=== PATIENT | male | born 1980 | race Caucasian/White ===

== ENCOUNTER 2022-12-28 17:04 | Emergency (ER) | payer BC ==
[2022-12-28 17:23] LABS: Absolute Lymphocytes (CBC) 2.9 K/uL (0.7-4.9); Hematocrit 41.2 % (39.6-49.0); Lymphocytes % 34.3 % (15.3-44.8); MCV 89.4 fL (80-100); MPV 7.9 fL (7.6-11.3); RBC Red Blood Cell Count 4.61 M/uL (4.33-5.43)
[2022-12-28 17:43] LABS: Albumin 4.4 g/dL (3.4-5.0); Bilirubin Direct 0.1 mg/dL (0-0.2); Bilirubin Total 0.4 mg/dL (0.2-1.0); Magnesium 2.3 mg/dL (1.6-2.4); Potassium 3.8 mEq/L (3.5-5.1); Protein, Total 7.8 g/dL (6.4-8.2); Troponin High Sensitivity 6.7 pg/mL (<58.9)
--- NOTE | 2022-12-28 17:58 | RAD REPORT ---
EXAM DESCRIPTION: Crescencio Single View12/28/2022 5:51 pm CLINICAL HISTORY: Chest pain COMPARISON: none FINDINGS: The lungs appear clear of acute infiltrate. The heart is normal size IMPRESSION: No acute abnormalities displayed
[2022-12-28] MEDS ORDERED: SIMETHICONE 80 MG TAB ONE (18:33)
[2022-12-28] MEDS ORDERED: NA CHLORIDE 0.9% 1,000 ML ONE (18:33)
[2022-12-28] MEDS ORDERED: PANTOPRAZOLE 40MG TABLET PO ONE (18:33)
[2022-12-28] MEDS ORDERED: ASPIRIN 81 MG CHEWABLE TABLET ONE (18:33)
[2022-12-28 20:18] LABS: Troponin High Sensitivity 6.8 pg/mL (<58.9)
--- NOTE | 2022-12-28 20:34 | ER ---
Nurse's Notes [facility] Name: Toan Ocampo Age: 42 yrs Sex: Male : 1980 Arrival Date: 12/28/2022 Time: 17:04 Bed 12 Private MD: Diagnosis: Chest pain, unspecified;Volume depletion, unspecified Presentation: 12/28 17:09 Chief complaint: Patient states: Chest pain today at 1630. Coronavirus screen: At this ld1 time, the client does not indicate any symptoms associated with coronavirus-19. Ebola Screen: No symptoms or risks identified at this time. Initial Sepsis Screen: Does the patient meet any 2 criteria? No. Patient's initial sepsis screen is negative. Does the patient have a suspected source of infection? No. Patient's initial sepsis screen is negative. Risk Assessment: Do you want to hurt yourself or someone else? Patient reports no desire to harm self or others. Onset of symptoms was December 28, 2022 at 17:09. 17:09 Method Of Arrival: Ambulatory ld1 17:09 Acuity: NAHUM 3 ld1 Triage Assessment: 17:10 General: Appears in no apparent distress. comfortable, Behavior is calm, cooperative, ld1 appropriate for age. Pain: Complains of pain in chest Pain does not radiate. Pain currently is 0 out of 10 on a pain scale. at worst was 9 out of 10 on a pain scale. Quality of pain is described as throbbing, Pain began suddenly, Is intermittent. EENT: No signs and/or symptoms were reported regarding the EENT system. Neuro: Level of Consciousness is awake, alert, obeys commands, Oriented to person, place, time, situation. Cardiovascular: Capillary refill < 3 seconds Patient's skin is warm and dry. Respiratory: Airway is patent Respiratory effort is even, unlabored. GI: Abdomen is flat, non-distended. : No signs and/or symptoms were reported regarding the genitourinary system. Derm: No signs and/or symptoms reported regarding the dermatologic system. Musculoskeletal: No signs and/or symptoms reported regarding the musculoskeletal system. Historical: - Allergies: 17:10 No Known Allergies; ld1 - Home Meds: 17:10 None [Active]; ld1 - PMHx: 17:10 None; ld1 - PSHx: 17:10 None; ld1 - Immunization history:: Adult Immunizations up to date, Client reports receiving the 2nd dose of the Covid vaccine. - Social history:: Smoking status: Patient denies any tobacco usage or history of. Patient uses alcohol, occasionally. Screenin:53 [facility] ED Fall Risk Assessment (Adult) History of falling in the last 3 months, mb9 including since admission No falls in past 3 months (0 pts) Confusion or Disorientation No (0 pts) Intoxicated or Sedated No (0 pts) Impaired Gait No (0 pts) Mobility Assist Device Used No (0 pt) Altered Elimination No (0 pt) Score/Fall Risk Level 0 - 2 = Low Risk Oriented to surroundings, Maintained a safe environment, Educated pt \T\ family on fall prevention, incl call for assistance when getting out of bed. Abuse screen: Denies threats or abuse. Nutritional screening: No deficits noted. Tuberculosis screening: No symptoms or risk factors identified. Assessment: 18:53 General: Appears in no apparent distress. Pain: Denies pain. Neuro: Level of mb9 Consciousness is awake, alert, obeys commands, Oriented to person, place, time, situation, Appropriate for age. Cardiovascular: Patient's skin is warm and dry. Rhythm is regular. Respiratory: Airway is patent Respiratory effort is even, unlabored, Respiratory pattern is regular, symmetrical. GI: Abdomen is flat, non-distended, Bowel sounds present X 4 quads. Abd is soft and non tender X 4 quads. Derm: Skin is pink, warm \T\ dry. Musculoskeletal: Range of motion: intact in all extremities. 19:56 Reassessment: No changes from previously documented assessment. Patient and/or family mb9 updated on plan of care and expected duration. Pain level reassessed. Patient is alert, oriented x 3, equal unlabored respirations, skin warm/dry/pink. 20:43 Reassessment: Patient states feeling better. Patient states symptoms have improved. mb9 Vital Signs: 17:09 Temp 98.4(TE); Weight 81.65 kg; Height 6 ft. 2 in. ; Pain 0/10; ld1 17:09 BP 139 / 95; Pulse 70; Resp 18; Pulse Ox 99% on R/A; ld1 19:56 BP 135 / 86; Pulse 74; Resp 16; Pulse Ox 100% ; mb9 17:09 Body Mass Index 23.11 (81.65 kg, 187.96 cm) ld1 17:09 Pain Scale: Adult ld1 ED Course: 17:06 Patient arrived in ED. mr 17:06 Juliette Fowler FNP-C is PHCP. snw 17:06 Roland Sheehan DO is Attending Physician. snw 17:10 Triage completed. ld1 17:10 Arm band placed on right wrist. EKG completed in triage. Results shown to MD. ld1 17:18 Basic Metabolic Panel Sent. ld1 17:18 CBC with Diff Sent. ld1 17:18 LFT's Sent. ld1 17:18 Magnesium Sent. ld1 17:18 NT PRO-BNP Sent. ld1 17:18 PT-INR Sent. ld1 17:18 Troponin HS Sent. ld1 17:18 Inserted saline lock: 20 gauge in right antecubital area, using aseptic technique. ld1 Blood collected. 17:53 XRAY Chest (1 view) In Process Unspecified. EDMS 18:19 Deloris Brewster, MAIRA is Primary Nurse. mb9 18:52 Placed in gown. Bed in low position. Call light in reach. Side rails up X 1. Client mb9 placed on continuous cardiac and pulse oximetry monitoring. NIBP monitoring applied. panel monitor on. 18:53 No provider procedures requiring assistance completed. mb9 20:12 PHCP role handed off by Juliette Fowler FNP-C [facility] 20:12 Trey Snowden PA is PHCP. [facility] 20:36 Juliette Fowler FNP-C is PHCP. snw 20:43 IV discontinued, intact, bleeding controlled, No redness/swelling at site. Pressure mb9 dressing applied. Administered Medications: 18:21 Drug: NS 0.9% IV 1000 ml Route: IV; Rate: 1 bolus; Site: right antecubital; mb9 20:43 Follow up: Response: No adverse reaction; IV Status: Completed infusion mb9 18:25 Drug: Aspirin PO Chewable Tablet 324 mg Route: PO; mb9 18:25 Drug: Simethicone PO 240 mg Route: PO; mb9 19:00 Follow up: Response: No adverse reaction mb9 18:26 Drug: Pantoprazole PO 40 mg Route: PO; mb9 19:00 Follow up: Response: No adverse reaction mb9 Medication: 18:53 VIS not applicable for this client. mb9 Outcome: 20:34 Discharge ordered by . abel 20:43 Discharged to home ambulatory. mb9 20:43 Condition: stable 20:43 Discharge instructions given to patient, Instructed on discharge instructions, follow up and referral plans. Demonstrated understanding of instructions, follow-up care, medications, Prescriptions given X 2. 20:44 Patient left the ED. mb9 Signatures: Dispatcher [employer] EDMS Juliette Fowler, NANCI[employer] TOPOLOGY TEACHER-Csnw Trey Snowden PA PA jmm Rivera, Mary mr Sims, Lauren RN RN ld1 Deloris Brewster RN RN mb9
--- NOTE | 2022-12-28 20:35 | EDPHYS ---
Physician Documentation [facility] Name: Toan Ocampo Age: 42 yrs Sex: Male : 1980 Arrival Date: 12/28/2022 Time: 17:04 Bed 12 Private MD: ED Physician Roland Sheehan HPI: 12/28 17:14 This 42 yrs old Male presents to ER via Ambulatory with complaints of Chest Pain. snw 17:14 Onset: The symptoms/episode began/occurred suddenly. Associated signs and symptoms: snw Pertinent positives: The patient does not have any pertinent positive signs or symptoms associated with pediatric illness. The patient has not experienced similar symptoms in the past. The patient has not recently seen a physician. walking in to HEB and entire chest felt like a spasm with significant pain. Historical: - Allergies: 17:10 No Known Allergies; ld1 - Home Meds: 17:10 None [Active]; ld1 - PMHx: 17:10 None; ld1 - PSHx: 17:10 None; ld1 - Immunization history:: Adult Immunizations up to date, Client reports receiving the 2nd dose of the Covid vaccine. - Social history:: Smoking status: Patient denies any tobacco usage or history of. Patient uses alcohol, occasionally. ROS: 17:13 Constitutional: Negative for fever, chills, and weight loss, Eyes: Negative for injury, snw pain, redness, and discharge, ENT: Negative for injury, pain, and discharge, Neck: Negative for injury, pain, and swelling, Respiratory: Negative for shortness of breath, cough, wheezing, and pleuritic chest pain, Abdomen/GI: Negative for abdominal pain, nausea, vomiting, diarrhea, and constipation, Back: Negative for injury and pain, : Negative for injury, bleeding, discharge, and swelling, MS/Extremity: Negative for injury and deformity, Skin: Negative for injury, rash, and discoloration, Neuro: Negative for headache, weakness, numbness, tingling, and seizure, Psych: Negative for depression, anxiety, suicide ideation, homicidal ideation, and hallucinations. 17:13 Cardiovascular: Positive for chest pain, of the chest, from armpits across entire chest. Exam: 17:12 Constitutional: This is a well developed, well nourished patient who is awake, alert, snw and in no acute distress. Head/Face: Normocephalic, atraumatic. Eyes: Pupils equal round and reactive to light, extra-ocular motions intact. Lids and lashes normal. Conjunctiva and sclera are non-icteric and not injected. Cornea within normal limits. Periorbital areas with no swelling, redness, or edema. ENT: Nares patent. No nasal discharge, no septal abnormalities noted. Tympanic membranes are normal and external auditory canals are clear. Oropharynx with no redness, swelling, or masses, exudates, or evidence of obstruction, uvula midline. Mucous membranes moist. Neck: Trachea midline, no thyromegaly or masses palpated, and no cervical lymphadenopathy. Supple, full range of motion without nuchal rigidity, or vertebral point tenderness. No Meningismus. Respiratory: Lungs have equal breath sounds bilaterally, clear to auscultation and percussion. No rales, rhonchi or wheezes noted. No increased work of breathing, no retractions or nasal flaring. Abdomen/GI: Soft, non-tender, with normal bowel sounds. No distension or tympany. No guarding or rebound. No evidence of tenderness throughout. Back: No spinal tenderness. No costovertebral tenderness. Full range of motion. Skin: Warm, dry with normal turgor. Normal color with no rashes, no lesions, and no evidence of cellulitis. MS/ Extremity: Pulses equal, no cyanosis. Neurovascular intact. Full, normal range of motion. Neuro: Awake and alert, GCS 15, oriented to person, place, time, and situation. Cranial nerves II-XII grossly intact. Motor strength 5/5 in all extremities. Sensory grossly intact. Cerebellar exam normal. Normal gait. Psych: Awake, alert, with orientation to person, place and time. Behavior, mood, and affect are within normal limits. 17:12 Chest/axilla: Inspection: normal. 17:12 Cardiovascular: Rate: normal, Rhythm: regular, Pulses: no pulse deficits are appreciated, Heart sounds: normal. Vital Signs: 17:09 Temp 98.4(TE); Weight 81.65 kg; Height 6 ft. 2 in. ; Pain 0/10; ld1 17:09 BP 139 / 95; Pulse 70; Resp 18; Pulse Ox 99% on R/A; ld1 19:56 BP 135 / 86; Pulse 74; Resp 16; Pulse Ox 100% ; mb9 17:09 Body Mass Index 23.11 (81.65 kg, 187.96 cm) ld1 17:09 Pain Scale: Adult ld1 MDM: 17:07 Patient medically screened. snw 19:09 Differential diagnosis: abnormal EKG, acute myocardial infarction, anxiety, coronary snw artery disease chest wall pain, esophagitis, gastroesophageal reflux disease (GERD), pancreatitis, gas pain, rhabdo. The patient was given aspirin in the Emergency Department. SONY Risk Score: 1 - patient's age is greater or equal to 65 years, 1 - Three or more CAD risk factors, 1- Known CAD, 1 - ASA use in past 7 days, 1 - Recent [<24hrs] Severe Angina, 1 - Elevated Cardiac Markers, 1 - ST deviation >0.5mm, TOTAL SCORE = 0. Data reviewed: vital signs, nurses notes, lab test result(s), EKG, radiologic studies. Counseling: I had a detailed discussion with the patient and/or guardian regarding: the historical points, exam findings, and any diagnostic results supporting the discharge/admit diagnosis, the presence of at least one elevated blood pressure reading (>120/80) during this emergency department visit, lab results, radiology results, the need for outpatient follow up, for definitive care. Response to treatment: the patient's symptoms have resolved after treatment. Special discussion: Based on the patient's history, exam, and Dx evaluation, there is no indication for emergent intervention or inpatient Tx. It is understood by the patient/guardian that if the Sx's persist or worsen they need to return immediately for re-evaluation. I have referred the patient to see his PCP for further evaluation of high blood pressure. Based on the history and exam findings, there is no indication for further emergent testing or inpatient evaluation. I discussed with the patient/guardian the need to see the ob tech for further evaluation of the symptoms. I discussed with the patient/guardian the need to see the primary care provider for further evaluation of the symptoms. 12/28 17:12 Order name: Basic Metabolic Panel; Complete Time: 17:47 snw 12/28 17:12 Order name: CBC with Diff; Complete Time: 17:34 snw 12/28 17:12 Order name: LFT's; Complete Time: 17:47 snw 12/28 17:12 Order name: Magnesium; Complete Time: 17:47 w 12/28 17:12 Order name: NT PRO-BNP; Complete Time: 17:47 w 12/28 17:12 Order name: PT-INR; Complete Time: 17:34 w 12/28 17:12 Order name: Troponin HS; Complete Time: 17:47 w 12/28 17:12 Order name: CPK; Complete Time: 17:47 w 12/28 19:10 Order name: CPK; Complete Time: 20:21 w 12/28 19:10 Order name: Troponin High Sensitivity; Complete Time: 20:21 w 12/28 17:12 Order name: XRAY Chest (1 view); Complete Time: 17:58 w 12/28 17:12 Order name: EKG; Complete Time: 17:12 12/28 17:12 Order name: Cardiac monitoring; Complete Time: 18:19 w 12/28 17:12 Order name: EKG - Nurse/Tech; Complete Time: 17:18 12/28 17:12 Order name: IV Saline Lock; Complete Time: 17:18 12/28 17:12 Order name: Labs collected and sent; Complete Time: 17:18 12/28 17:12 Order name: O2 Per Protocol; Complete Time: 17:18 12/28 17:12 Order name: O2 Sat Monitoring; Complete Time: 17:19 snw EC:20 Rate is 61 beats/min. Rhythm is regular. QRS [place] is Normal. ND interval is normal. snw Clinical impression: LVH. Administered Medications: 18:21 Drug: NS 0.9% IV 1000 ml Route: IV; Rate: 1 bolus; Site: right antecubital; mb9 20:43 Follow up: Response: No adverse reaction; IV Status: Completed infusion mb9 18:25 Drug: Aspirin PO Chewable Tablet 324 mg Route: PO; mb9 18:25 Drug: Simethicone PO 240 mg Route: PO; mb9 19:00 Follow up: Response: No adverse reaction mb9 18:26 Drug: Pantoprazole PO 40 mg Route: PO; mb9 19:00 Follow up: Response: No adverse reaction mb9 Disposition: 19:29 Co-signature as Attending Physician, Roland Sheehan DO I was immediately available on-site ms3 in the Emergency Department for consultation in the care of the patient. Disposition Summary: 12/28/22 20:34 Discharge Ordered Location: Home snw Condition: Stable snw Diagnosis - Chest pain, unspecified snw - Volume depletion, unspecified snw Followup: snw - With: Emergency Department - When: As needed - Reason: Worsening of condition Followup: snw - With: Private Physician - When: 2 - 3 days - Reason: Recheck today's complaints, Continuance of care, Re-evaluation by your physician Discharge Instructions: - Discharge Summary Sheet snw - Nonspecific Chest Pain, Adult snw - Dehydration, Adult snw - Rhabdomyolysis snw - Gas and Gas Pains, Pediatric snw - How to Take Your Blood Pressure, [id number] snw - Aspirin and Your Heart snw - Rehydration, Adult snw - Form - Blood Pressure Record Sheet snw Forms: - Work release form snw - Medication Reconciliation Form snw - Thank You Letter snw - Antibiotic Education snw - Prescription Opioid Use snw Prescriptions: - Protonix 40 mg Oral Tablet - take 1 tablet by ORAL route once daily; 30 tablet; Refills: 0, Product snw Selection Permitted - Pepcid 20 mg Oral Tablet - take 1 tablet by ORAL route once daily; 20 tablet; Refills: 0, Product snw Selection Permitted Signatures: Dispatcher [employer] EDJuliette Gaming FNP-C FILM PROCESSING SUPERVISOR-Csnw Trey Snowden PA PA jmm Sims, Marcus, DO DO ms3 Maria Sheehan RN RN ld1 Deloris Brewster RN RN mb9
[2022-12-28 21:43] VITALS: TEMP 98.4
[2022-12-28 21:46] VITALS: BP 135/86; O2SAT 100
--- NOTE | 2022-12-29 15:19 | EKG ---
Test Date: 2022-12-28 Test Time: 17:16:29 Housekeeping Attendant: DEBORA MEASUREMENT RESULTS: Intervals: Rate: 61 AR: 138 QRSD: 92 QT: 392 QTc: 394 Angie: P: 56 AR: 138 QRS: 70 T: 70 INTERPRETIVE STATEMENTS: Normal sinus rhythm with sinus arrhythmia Normal ECG No previous ECG available for comparison Electronically Signed On 12-29-22 15:18:08 CDT by Merlin Clayton
== END 2022-12-28 20:44 | disposition home or self-care (01) ==
LOC: ER 17:04
DX: R07.89 Other chest pain (principal); E86.9 Volume depletion, unspecified
CPT/HCPCS: 93005; 85025; 80048; 36415; 83735; 82550 ×2; 85610; 80076; 84484 ×2; 83880; 71045; J7030